=== PATIENT | male | born 2000 | race African-American/Black ===

== ENCOUNTER 2024-11-14 22:59 | Emergency (ER) | payer OTHER, MEDICAID ==
[~2024-11-14] VITALS: Ht 167.6 cm; Wt 73.0 kg
[2024-11-14 23:07] VITALS: O2SAT 100
[2024-11-15 00:01] LABS: CLARITY URINE CLEAR (CLEAR); COLOR URINE DARK YELLOW (YELLOW); GLUCOSE URINE NEGATIVE (NEGATIVE); KETONES URINE 2+ (NEGATIVE); LEUKOCYTE ESTERASE URINE NEGATIVE (NEGATIVE); NITRITE URINE NEGATIVE (NEGATIVE); OCCULT BLOOD URINE NEGATIVE (NEGATIVE); PH URINE 6.0 (4.5-8.0); PROTEIN URINE 2+ (NEGATIVE); SPECIFIC GRAVITY URINE 1.039 (1.005-1.030); UROBILINOGEN URINE 1.0 E.U./dL (0.2-1.0)
[2024-11-15 00:01] LABS: BASOPHILS % 0.9 % (0.0-2.0); EOSINOPHILS % 0.1 % (0.0-5.0); HEMATOCRIT. 47.1 % (42.0-52.0); HEMOGLOBIN. 15.3 g/dL (14.0-18.0); LYMPHOCYTES % 32.2 % (20.0-50.0); MEAN PLATELET VOLUME 9.2 fl (7.4-10.4); MONOCYTES % 7.0 % (2.0-8.0); NEUTROPHILS % 59.8 % (40.0-76.0); PLATELET 214 x1000/uL (130-400); RED BLOOD CELL COUNT 6.05 mill/uL (4.7-6.1); RED CELL DISTRIBUTION WIDTH 14.1 % (11.6-14.6)
[2024-11-15 00:12] LABS: CREATININE 1.2 mg/dL (0.6-1.3); UREA NITROGEN BLOOD 13 mg/dL (9-23)
[2024-11-15 00:13] LABS: INR 1.4
[2024-11-15 00:14] LABS: ASPARTATE AMINOTRANSFERASE 72 IU/L (<34); BILIRUBIN DIRECT 0.2 mg/dL (<=3.0)
[2024-11-15 00:15] LABS: BILIRUBIN TOTAL 0.6 mg/dL (0.1-1.0); PROTEIN TOTAL 7.5 g/dL (6.0-8.3)
[2024-11-15 00:24] LABS: SQUAMOUS EPITHELIAL CELL URINE FEW /lpf (RARE/1+)
[2024-11-15 00:25] LABS: BACTERIA URINE NONE SEEN; RBC URINE 0-2 /hpf (0-2); WBC URINE 0-2 /hpf (0-2)
[2024-11-15] MEDS: LACTATED RINGERS 1,000 ML IV ONE (01:18)
[2024-11-15] MEDS: PANTOPRAZOLE SODIUM 40 MG/VIAL IV ONE (01:18)
[2024-11-15 03:11] VITALS: BP 110/53; PULSE 74; RESP 18; TEMP 37.2; O2SAT 100
[2024-11-15] MEDS: METOCLOPRAMIDE HCL 10MG/2ML VIAL IV ONE (03:18)
== END 2024-11-15 04:12 | disposition short-term general hospital (02) ==
LOC: ER 22:59 → EDBEDREQ 11-15 01:03 → ER 11-15 04:12
DX: K56.7 Ileus, unspecified (principal); E87.8 Other disorders of electrolyte and fluid balance, not elsewhere classified; E87.1 Hypo-osmolality and hyponatremia; J45.909 Unspecified asthma, uncomplicated; Z79.899 Other long term (current) drug therapy
CPT/HCPCS: 80076; 80048; 81003; 83690; 85025; 85610; 36415; 99285; 82962; 74176; 96361; 96374; 96375; J7120; J2765; J2470; Z7610 ×3